=== PATIENT | female | born 2000 | race Hispanic/Latino ===

== ENCOUNTER 2020-07-28 11:58 | Emergency (ER) | payer SELFPAY ==
[~2020-07-28] VITALS: Ht 157.5 cm; Wt 62.6 kg
[2020-07-28] MEDS ORDERED: ZYRTEC10 M3 PO (12:44)
[2020-07-28] MEDS ORDERED: SINGULAIR5 MG PO (12:44)
== END 2020-07-28 12:49 | disposition home or self-care (01) ==
LOC: ER 12:43
DX: R06.02 Shortness of breath (principal); J02.9 Acute pharyngitis, unspecified; J45.909 Unspecified asthma, uncomplicated
CPT/HCPCS: 99282